=== PATIENT | female | born 1935 | race Caucasian/White ===

== ENCOUNTER 2020-04-22 09:59 | Emergency (ER) | payer MEDICARE, MEDICAID ==
[~2020-04-22] VITALS: Ht 162.6 cm; Wt 103.1 kg
[2020-04-22] MEDS ORDERED: ALLOPURINOL100 MG PO (10:41)
[2020-04-22] MEDS ORDERED: LIPITOR20 MG PO (10:42)
[2020-04-22] MEDS ORDERED: ANORO ELLIPTA 61 AER IN (10:42)
[2020-04-22] MEDS ORDERED: CARVEDILOL6.25 MG PO (10:43)
[2020-04-22] MEDS ORDERED: BASAGLAR K100 UNIT/M SC (10:43)
[2020-04-22] MEDS ORDERED: GABAPENTIN100 MG PO (10:44)
[2020-04-22] MEDS ORDERED: LOSARTAN POTASS50 MG PO (10:44)
[2020-04-22] MEDS ORDERED: PRADAXA150 M1 PO (10:46)
[2020-04-22] MEDS ORDERED: MAXZIDE-2537.5 MG/TA PO (10:46)
[2020-04-22] MEDS ORDERED: CEPHALEXIN500 M1 PO (11:51)
[2020-04-22 12:45] VITALS: BP 104/56
== END 2020-04-22 12:45 | disposition home or self-care (01) ==
LOC: ED 09:59
DX: L03.116 Cellulitis of left lower limb (principal); E11.9 Type 2 diabetes mellitus without complications; Z79.4 Long term (current) use of insulin; M79.605 Pain in left leg; M79.604 Pain in right leg